=== PATIENT | male | born 1970 | race Caucasian/White ===

== ENCOUNTER 2018-01-24 14:11 | Emergency (ER) | payer SELFPAY ==
[2018-01-24 14:49] LABS: Absolute Lymphocytes (CBC) 2.1 K/uL (0.7-4.9); Absolute Neutrophil 3.2 K/uL (1.8-8.0); Eosinophils % 1.3 % (0-4.4); Hematocrit 44.6 % (39.6-49.0); Lymphocytes % 32.2 % (15.3-44.8); MCH 35.7 pg (27.0-35.0); MCV 103.9 fL (80-100); MPV 8.4 fL (7.6-11.3); RBC Red Blood Cell Count 4.29 M/uL (4.33-5.43)
[2018-01-24 14:54] LABS: Protime INR 0.92
[2018-01-24 15:13] LABS: ALT/SGPT 222 U/L (12-78); Albumin 4.1 g/dL (3.4-5.0); Alkaline Phosphatase 130 U/L (45-117); BUN Blood Urea Nitrogen 6 mg/dL (7-18); Bicarbonate 28 mmol/L (21-32); Bilirubin Direct 0.2 mg/dL (0-0.2); Bilirubin Total 0.3 mg/dL (0.2-1.0); Glucose Level 109 mg/dL (74-106); Protein, Total 8.4 g/dL (6.4-8.2); Sodium Level 142 mmol/L (136-145); Troponin (Emerg Dept Use Only) < 0.02 ng/mL (0.0-0.045)
--- NOTE | 2018-01-24 15:15 | RAD REPORT ---
EXAM DESCRIPTION: CT - Head Brain Wo Cont - 01/24/2018 3:08 pm CLINICAL HISTORY: CONFUSED Drowsiness COMPARISON: No comparisons TECHNIQUE: All CT scans are performed using dose optimization technique as appropriate and may inclu de automated exposure control or mA/KV adjustment according to patient size. FINDINGS: No intracranial hemorrhage, hydrocephalus or extra-axial fluid collection.No areas of brai n edema or evidence of midline shift. The paranasal sinuses and mastoids are clear. The calvarium is intact. IMPRESSION: No acute intracranial abnormality.
[2018-01-24 15:17] LABS: AST/SGOT 388 U/L (15-37); Potassium 2.8 mmol/L (3.5-5.1)
[2018-01-24] MEDS ORDERED: POTASSIUM CL SA 10 MEQ TAB PO ONE ×2 (15:42→17:07)
--- NOTE | 2018-01-24 16:51 | ER ---
Nurse's Notes [facility] Name: Steve Villaseñor Age: 47 yrs Sex: Male : 1970 Arrival Date: 01/24/2018 Time: 14:16 Bed 18 Private MD: Diagnosis: Alcohol abuse with intoxication Presentation: 01/24 14:17 Presenting complaint: EMS states: called out for intoxicated person at restaurant em parking lot, pt c/o chest pain described as "it's like a cramp, coming at me" pointed at center of chest, smells of ETOH. Transition of care: patient was not received from another setting of care. Onset of symptoms was January 24, 2018. Risk Assessment: Do you want to hurt yourself or someone else? Patient reports no desire to harm self or others. Initial Sepsis Screen: Does the patient meet any 2 criteria? No. Patient's initial sepsis screen is negative. Does the patient have a suspected source of infection? No. Patient's initial sepsis screen is negative. Care prior to arrival: None. 14:17 Method Of Arrival: EMS: [facility] em 14:17 Acuity: OSCAR 3 ss Triage Assessment: 14:21 General: Appears in no apparent distress. comfortable, Behavior is calm, cooperative, em Smells of alcohol. Pain: Complains of pain in chest. Historical: - Allergies: 14:21 No Known Allergies; em - PMHx: 14:21 None; em - PSHx: 14:21 None; em - Immunization history:: Adult Immunizations up to date. - Social history:: Smoking status: Patient uses tobacco products, smokes one pack cigarettes per day. - Ebola Screening: : Patient negative for fever greater than or equal to 101.5 degrees Fahrenheit, and additional compatible Ebola Virus Disease symptoms Patient denies exposure to infectious person Patient denies travel to an Ebola-affected area in the 21 days before illness onset No symptoms or risks identified at this time. Screenin:27 Abuse screen: Denies threats or abuse. Nutritional screening: No deficits noted. em Tuberculosis screening: No symptoms or risk factors identified. Fall Risk Gait- Impaired (20 pts.). Mental Status- Overestimates/Forgets Limitations (15 pts.). Total Price Fall Scale indicates Low Risk Score (25-44 pts). Side Rails Up X 2 Placed close to Nursing Station. Assessment: 14:11 General: Appears in no apparent distress. comfortable, Behavior is calm, cooperative, em Smells of alcohol. Pain: Complains of pain in chest Pain currently is 10 out of 10 on a pain scale. Neuro: Level of Consciousness is awake, alert, obeys commands, Oriented to person, place, time, situation. Cardiovascular: Reports chest pain, Capillary refill < 3 seconds Patient's skin is warm and dry. Rhythm is sinus rhythm. Respiratory: Airway is patent Respiratory effort is even, unlabored, Respiratory pattern is regular, symmetrical, Breath sounds are clear bilaterally. GI: Abdomen is flat, Patient currently denies nausea, vomiting. : No signs and/or symptoms were reported regarding the genitourinary system. EENT: No signs and/or symptoms were reported regarding the EENT system. Derm: Skin is intact, Skin is pink, warm \\T\\ dry. Musculoskeletal: Range of motion: intact in all extremities. 15:06 Reassessment: Patient appears in no apparent distress at this time. Patient and/or em family updated on plan of care and expected duration. Pain level reassessed. Patient is alert, oriented x 3, equal unlabored respirations, skin warm/dry/pink. 15:44 Reassessment: Patient appears in no apparent distress at this time. Patient and/or em family updated on plan of care and expected duration. Pain level reassessed. Patient is alert, oriented x 3, equal unlabored respirations, skin warm/dry/pink. pt request to go smoke, staff informed pt that this campus is a smoke free campus and cannot leave without an IV in place, pt verbalizes understanding Patient states feeling better. 16:45 Reassessment: Patient appears in no apparent distress at this time. Patient and/or em family updated on plan of care and expected duration. Pain level reassessed. Patient is alert, oriented x 3, equal unlabored respirations, skin warm/dry/pink. pt friend will take pt home after discharge, special instructions to not allow pt to drive for at least one day, both verbalize understanding Patient denies pain at this time. Patient states feeling better. Vital Signs: 14:11 BP 122 / 82; Pulse 95; Resp 18; Temp 98.6; Pulse Ox 98.6% on R/A; Weight 77.11 kg; em Height 5 ft. 8 in. (172.72 cm); Pain 10/10; 15:00 BP 138 / 93; Pulse 75; Resp 16; Pulse Ox 100% on R/A; em 16:00 BP 130 / 87; Pulse 86; Resp 18; Pulse Ox 99% on R/A; em 16:45 BP 128 / 91; Pulse 72; Resp 16; Pulse Ox 100% on R/A; Pain 0/10; em 14:11 Body Mass Index 25.85 (77.11 kg, 172.72 cm) em ED Course: 14:11 Arm band placed on. em 14:16 Patient arrived in ED. mr 14:16 John Cece, KE[facility]INDE [facility]. kb 14:17 Arsen Spears MD is Attending Physician. kb 14:17 Kwan Wagner LVN is Primary Nurse. em 14:27 Patient has correct armband on for positive identification. Bed in low position. Call em light in reach. 14:40 Triage completed. ss 15:02 Initial lab(s) drawn, by me, sent to lab. EKG done, by ED staff, reviewed by Arsen Spears MD. Inserted saline lock: 20 gauge in right antecubital area, using aseptic technique. Blood collected. 15:08 CT Head Brain wo Cont In Process Unspecified. EDMS 15:17 Notified Nurse Practitioner and/or Physician Wagon Driller of a critical lab result(s), sg Potassium 2..8, AST 388. 17:06 No provider procedures requiring assistance completed. IV discontinued, intact, em bleeding controlled, No redness/swelling at site. Pressure dressing applied. Administered Medications: Discontinued: Banana Bag - (NS 0.9% 1000 ml, foLIC Acid 1 mg, Thiamine 100 mg, Multivitamin 1 amp) IV at calculated rate once 15:37 Drug: Potassium Chloride 40 mEq Route: PO; em 15:58 Follow up: Response: No adverse reaction em 15:58 Drug: Banana Bag - (NS 0.9% 1000 ml, foLIC Acid 1 mg, Thiamine 100 mg, Multivitamin 1 em amp) Route: IV; Rate: calculated rate; Site: right antecubital; 17:00 Drug: Potassium Chloride 40 mEq Route: PO; em 17:05 Follow up: Response: Medication administered at discharge. em Outcome: 16:50 Discharge ordered by . kb 17:06 Discharged to home ambulatory, with friend. em 17:06 Condition: improved 17:06 Discharge instructions given to patient, friend, Instructed on discharge instructions, follow up and referral plans. Demonstrated understanding of instructions, follow-up care. 17:09 Patient left the ED. em Signatures: Dispatcher [employer] Cece Wiley, WEBSPHERE PORTAL ARCHITECT-C WEBSPHERE PORTAL ARCHITECT-Kulwant Cool, RN RN Cristina Sun BernardKwan, AUTO OVERHAULER AUTO OVERHAULER em Maria Isabel Guerrero RN RN ss
--- NOTE | 2018-01-24 16:52 | EDPHYS ---
Physician Documentation [facility] Name: Steve Villaseñor Age: 47 yrs Sex: Male : 1970 Arrival Date: 01/24/2018 Time: 14:16 Bed 18 Private MD: ED Physician Arsen Spears HPI: 01/24 14:20 This 47 yrs old Male presents to ER via Unassigned with complaints of ETOH kb Abuse. 14:23 The patient presents with disorientation, to time. Onset: The symptoms/episode kb began/occurred today. Possible causes: alcohol, has a history of chronic alcohol abuse. Associated signs and symptoms: Pertinent positives: chest pain. Current symptoms: In the emergency department the patient's symptoms are unchanged from the initial presentation. Patient's baseline: Neuro: alert and fully oriented, Motor: no deficits, Ambulation: walks without assistance, Speech: normal. The patient has not experienced similar symptoms in the past. The patient has not recently seen a physician. 14:28 [facility] called EMS to transport to ER kb for intoxication. Historical: - Allergies: 14:21 No Known Allergies; em - PMHx: 14:21 None; em - PSHx: 14:21 None; em - Immunization history:: Adult Immunizations up to date. - Social history:: Smoking status: Patient uses tobacco products, smokes one pack cigarettes per day. - Ebola Screening: : Patient negative for fever greater than or equal to 101.5 degrees Fahrenheit, and additional compatible Ebola Virus Disease symptoms Patient denies exposure to infectious person Patient denies travel to an Ebola-affected area in the 21 days before illness onset No symptoms or risks identified at this time. ROS: 14:18 Constitutional: Negative for fever, chills, and weight loss, ENT: Negative for injury, kb pain, and discharge, Neck: Negative for injury, pain, and swelling, Respiratory: Negative for shortness of breath, cough, wheezing, and pleuritic chest pain, Abdomen/GI: Negative for abdominal pain, nausea, vomiting, diarrhea, and constipation, Back: Negative for injury and pain, : Negative for injury, bleeding, discharge, and swelling, MS/Extremity: Negative for injury and deformity, Skin: Negative for injury, rash, and discoloration, Neuro: Negative for headache, weakness, numbness, tingling, and seizure. 14:18 Cardiovascular: Positive for chest pain, Negative for edema, orthopnea, palpitations, paroxysmal nocturnal dyspnea. Exam: 14:17 Head/Face: Normocephalic, atraumatic. ENT: Nares patent. No nasal discharge, no kb septal abnormalities noted. Tympanic membranes are normal and external auditory canals are clear. Oropharynx with no redness, swelling, or masses, exudates, or evidence of obstruction, uvula midline. Mucous membranes moist. Neck: Trachea midline, no thyromegaly or masses palpated, and no cervical lymphadenopathy. Supple, full range of motion without nuchal rigidity, or vertebral point tenderness. No Meningismus. Chest/axilla: Normal chest wall appearance and motion. Nontender with no deformity. No lesions are appreciated. Cardiovascular: Regular rate and rhythm with a normal S1 and S2. No gallops, murmurs, or rubs. Normal PMI, no JVD. No pulse deficits. Respiratory: Lungs have equal breath sounds bilaterally, clear to auscultation and percussion. No rales, rhonchi or wheezes noted. No increased work of breathing, no retractions or nasal flaring. Abdomen/GI: Soft, non-tender, with normal bowel sounds. No distension or tympany. No guarding or rebound. No evidence of tenderness throughout. Skin: Warm, dry with normal turgor. Normal color with no rashes, no lesions, and no evidence of cellulitis. MS/ Extremity: Pulses equal, no cyanosis. Neurovascular intact. Full, normal range of motion. Neuro: Awake and alert, GCS 15, oriented to person, place, time, and situation. Cranial nerves II-XII grossly intact. Motor strength 5/5 in all extremities. Sensory grossly intact. Cerebellar exam normal. Normal gait. 14:17 Constitutional: The patient appears alert, awake, smells of alcohol, ETOH. Vital Signs: 14:11 BP 122 / 82; Pulse 95; Resp 18; Temp 98.6; Pulse Ox 98.6% on R/A; Weight 77.11 kg; em Height 5 ft. 8 in. (172.72 cm); Pain 10/10; 15:00 BP 138 / 93; Pulse 75; Resp 16; Pulse Ox 100% on R/A; em 16:00 BP 130 / 87; Pulse 86; Resp 18; Pulse Ox 99% on R/A; em 16:45 BP 128 / 91; Pulse 72; Resp 16; Pulse Ox 100% on R/A; Pain 0/10; em 14:11 Body Mass Index 25.85 (77.11 kg, 172.72 cm) em MDM: 14:17 Patient medically screened. kb 14:17 Data reviewed: vital signs, nurses notes. Data interpreted: Pulse oximetry: on room air kb is 98 %. Interpretation: normal. 16:48 Counseling: I had a detailed discussion with the patient and/or guardian regarding: the kb historical points, exam findings, and any diagnostic results supporting the discharge/admit diagnosis, lab results, the need for outpatient follow up, a family practitioner, to return to the emergency department if symptoms worsen or persist or if there are any questions or concerns that arise at home. 16:50 ED course: Pt discharged to sober, responsible adult.. kb 01/24 14:17 Order name: Acetaminophen kb 01/24 14:17 Order name: Basic Metabolic Panel; Complete Time: 15:18 kb 01/24 14:17 Order name: CBC with Diff; Complete Time: 14:58 kb 01/24 14:17 Order name: ETOH Level; Complete Time: 15:17 kb 01/24 14:17 Order name: Hepatic Function; Complete Time: 15:18 kb 01/24 14:17 Order name: PT-INR; Complete Time: 15:17 kb 01/24 14:17 Order name: Ptt, Activated; Complete Time: 15:17 kb 01/24 14:17 Order name: Salicylate; Complete Time: 15:17 kb 01/24 14:17 Order name: Troponin (emerg Dept Use Only); Complete Time: 15:18 kb 01/24 14:17 Order name: Acetaminophen Level; Complete Time: 15:18 EDMS 01/24 14:48 Order name: CT Head Brain wo Cont; Complete Time: 15:17 kb 01/24 14:17 Order name: EKG; Complete Time: 14:18 kb 01/24 14:17 Order name: EKG - Nurse/Tech; Complete Time: 15:45 kb 01/24 14:17 Order name: IV Saline Lock; Complete Time: 14:40 kb 01/24 14:17 Order name: Labs collected and sent; Complete Time: 14:39 kb 01/24 14:17 Order name: Urine Dipstick-Ancillary (obtain specimen); Complete Time: 14:40 kb Administered Medications: Discontinued: Banana Bag - (NS 0.9% 1000 ml, foLIC Acid 1 mg, Thiamine 100 mg, Multivitamin 1 amp) IV at calculated rate once 15:37 Drug: Potassium Chloride 40 mEq Route: PO; em 15:58 Follow up: Response: No adverse reaction em 15:58 Drug: Banana Bag - (NS 0.9% 1000 ml, foLIC Acid 1 mg, Thiamine 100 mg, Multivitamin 1 em amp) Route: IV; Rate: calculated rate; Site: right antecubital; 17:00 Drug: Potassium Chloride 40 mEq Route: PO; em 17:05 Follow up: Response: Medication administered at discharge. em Disposition: 01/25 11:13 Co-signature as Attending Physician, Arsen Spears MD. gs Disposition: 01/24/18 16:50 Discharged to Home. Impression: Alcohol abuse with intoxication. - Condition is Stable. - Discharge Instructions: Alcohol Intoxication, [id number]. - Medication Reconciliation Form, Thank You Letter, Antibiotic Education, Prescription Opioid Use form. - Follow up: Emergency Department; When: As needed; Reason: Worsening of condition. Follow up: Private Physician; When: 2 - 3 days; Reason: Recheck today's complaints, Continuance of care, Re-evaluation by your physician. Signatures: Dispatcher [employer] [facility] Cece Lopez, RADHA-C HELICOPTER TECHNICIAN-Ckb Kwan Wagner, LIDAR SCIENTIST LIDAR SCIENTIST Arsen Doe MD MD Corrections: (The following items were deleted from the chart) 01/24 14:27 14:20 Context: Method: the patient has a confirmed or suspected ingestion, selena walters 17:01 14:18 URINE DRUG SCREEN+CHEM UR.LAB.BRZ ordered. [facility] 17:09 16:50 01/24/2018 16:50 Discharged to Home. Impression: Alcohol abuse with intoxication. em Condition is Stable. Forms are Medication Reconciliation Form, Thank You Letter, Antibiotic Education, Prescription Opioid Use. Follow up: Emergency Department; When: As needed; Reason: Worsening of condition. Follow up: Private Physician; When: 2 - 3 days; Reason: Recheck today's complaints, Continuance of care, Re-evaluation by your physician. selena
--- NOTE | 2018-01-25 07:05 | EKG ---
Test Date: 2018-01-24 Test Time: 14:43:26 [place] Worker: KIMBERLY MEASUREMENT RESULTS: Intervals: Rate: 78 MA: 140 QRSD: 84 QT: 382 QTc: 435 [place]: P: 12 MA: 140 QRS: 5 T: 34 INTERPRETIVE STATEMENTS: Normal sinus rhythm Normal ECG No previous ECG available for comparison Electronically Signed On 01-25-18 07:04:26 RESTAURANT LEAD by Deni Rosario
[2018-01-25] MEDS ORDERED: FOLIC ACID 1 MG, MULTIVITAMINS INJ 10 ML, THIAMINE HCL 100 MG in NA CHLORIDE 0.9% 1,000 ML IV SCH (09:00)
== END 2018-01-24 17:09 | disposition home or self-care (01) ==
LOC: ER 14:11
DX: F10.129 Alcohol abuse with intoxication, unspecified (principal); R07.9 Chest pain, unspecified; F17.210 Nicotine dependence, cigarettes, uncomplicated
CPT/HCPCS: 36415; 70450; 80048; 80076; 80320; 80329; 84484; 85025; 85610; 85730; 93005; 96374; 99284; J3411; J7030

== ENCOUNTER 2020-04-10 09:01 | Inpatient (IN) | payer SELFPAY ==
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
--- NOTE | 2020-04-10 09:43 | RAD REPORT ---
EXAM DESCRIPTION: CT - Head Brain Wo Cont - 04/10/2020 9:35 am CLINICAL HISTORY: SEIZURE Headache, drowsiness, seizure COMPARISON: Head Brain Wo Cont dated 01/24/2018 TECHNIQUE: All CT scans are performed using dose optimization technique as appropriate and may inclu de automated exposure control or mA/KV adjustment according to patient size. FINDINGS: No intracranial hemorrhage, hydrocephalus or extra-axial fluid collection.No areas of brai n edema or evidence of midline shift. The paranasal sinuses and mastoids are clear. The calvarium is intact. IMPRESSION: No acute intracranial abnormality.
[2020-04-10] MEDS ORDERED: NA CHLORIDE 0.9% 1,000 ML with FOLIC ACID 1 MG, THIAMINE HCL 100 MG, MULTIVITAMINS INJ ... IV SCH ×4 (09:45)
[2020-04-10] MEDS ORDERED: LORazepam 2 MG/ML VIAL ONE ×4 (09:48→22:31)
[2020-04-10 10:04] LABS: Absolute Lymphocytes (CBC) 0.8 K/uL (0.7-4.9); Basophils % 0.3 % (0-1.3); Hematocrit 34.9 % (39.6-49.0); Lymphocytes % 13.2 % (15.3-44.8); MPV 9.8 fL (7.6-11.3); RBC Red Blood Cell Count 3.57 M/uL (4.33-5.43)
[2020-04-10 10:08] LABS: Protime INR 1.01
[2020-04-10 10:36] LABS: Blood Morphology Comment NOT SEEN (NOT SEEN); Platelet Estimate DECR; White Blood Cell Scan OK (OK)
[2020-04-10 10:40] LABS: ALT/SGPT 19 U/L (12-78); AST/SGOT 34 U/L (15-37); Albumin 2.7 g/dL (3.4-5.0); Alkaline Phosphatase 96 U/L (45-117); BUN Blood Urea Nitrogen 4 mg/dL (7-18); Bicarbonate 26 mmol/L (21-32); Bilirubin Direct 0.2 mg/dL (0-0.2); Bilirubin Total 0.5 mg/dL (0.2-1.0); Glucose Level 158 mg/dL (74-106); Protein, Total 6.2 g/dL (6.4-8.2); Sodium Level 133 mmol/L (136-145)
[2020-04-10 10:45] LABS: Potassium 2.5 mmol/L (3.5-5.1)
--- NOTE | 2020-04-10 11:44 | EDPHYS ---
Physician Documentation [facility] Name: Steve Villaseñor Age: 50 yrs Sex: Male : 1970 Arrival Date: 04/10/2020 Time: 09:13 Bed 20 Private MD: ED Physician Sonia Rodriguez HPI: 04/10 09:30 This 50 yrs old Male presents to ER via EMS with complaints of Seizure. cp 09:30 The patient presents after having a single isolated seizure, that lasted an unknown cp period of time. 09:30 Character of seizure(s): Loss of consciousness: the patient experienced loss of cp consciousness, Incontinence: none. 09:30 Context: the seizure(s) was witnessed, by family, occurred at home, Contributing cp factors: quit drinking alcohol 4 days ago. Seizure Hx: the patient has no previous seizure history. Associated injury: The patient did not suffer any apparent associated injury. EMS care: none. Current symptoms: Currently, the patient is not experiencing any symptoms, the patient feels back to baseline. Historical: - Allergies: 09:16 No Known Allergies; jd3 - Home Meds: 09:16 None [Active]; jd3 - PMHx: 09:16 Alcoholism; jd3 - PSHx: 09:16 None; jd3 - Immunization history:: Adult Immunizations unknown. - Social history:: Smoking status: Patient reports the use of cigarette tobacco products, smokes one-half pack cigarettes per day. ROS: 09:35 Constitutional: Negative for body aches, chills, fever, poor PO intake. cp 09:35 Eyes: Negative for injury, pain, redness, and discharge. cp 09:35 Cardiovascular: Negative for chest pain, palpitations. 09:35 Respiratory: Negative for cough, shortness of breath, wheezing. 09:35 Abdomen/GI: Negative for abdominal pain, nausea, vomiting, and diarrhea, black/tarry stool, rectal bleeding. 09:35 Skin: Negative for cellulitis, rash. 09:35 Neuro: Positive for history of seizure. 09:35 Psych: Positive for alcohol dependence, Negative for depression, auditory hallucinations, visual hallucinations, suicide gesture, suicidal ideation. 09:35 All other systems are negative. Exam: 09:35 Head/Face: Normocephalic, atraumatic. cp 09:35 Constitutional: The patient appears in no acute distress, alert, awake, non-diaphoretic, non-toxic, well developed, well nourished. 09:35 Eyes: Periorbital structures: appear normal, Pupils: equal, round, and reactive to light and accomodation, Extraocular movements: intact throughout, Conjunctiva: normal, no exudate, no injection, Sclera: no appreciated abnormality, Lids and lashes: appear normal, bilaterally. 09:35 ENT: External ear(s): are unremarkable, Nose: is normal, Mouth: Lips: moist, Oral mucosa: pink and intact, moist, Posterior pharynx: Airway: no evidence of obstruction, patent. 09:35 Neck: C-spine: vertebral tenderness, is not appreciated, crepitus, is not appreciated, ROM/movement: is normal, is supple, without pain, no range of motions limitations, no meningismus, no nuchal rigidity. 09:35 Chest/axilla: Inspection: normal, Palpation: is normal, no crepitus, no tenderness. 09:35 Cardiovascular: Rate: tachycardic, Rhythm: regular, Edema: is not appreciated, JVD: is not appreciated. 09:35 Respiratory: the patient does not display signs of respiratory distress, Respirations: normal, no use of accessory muscles, no retractions, labored breathing, is not present, intercostal retractions, are absent, shallow respirations, are not present, Breath sounds: are clear throughout, no decreased breath sounds, no stridor, no wheezing. 09:35 Abdomen/GI: Inspection: abdomen appears normal, Bowel sounds: active, all quadrants, Palpation: abdomen is soft and non-tender, in all quadrants. 09:35 Back: pain, is absent, ROM is normal. 09:35 Skin: cellulitis, is not appreciated, no rash present. 09:35 Neuro: Orientation: to person, place \\T\\ time. Mentation: is normal, Motor: moves all fours, strength is normal, Abnormal movements: resting tremor, is located in the right hand and left hand. 10:15 ECG was reviewed by the Attending Physician. cp Vital Signs: 09:17 BP 145 / 105; Pulse 108; Resp 17 S; Temp 99.7(O); Pulse Ox 100% on R/A; Weight 77.11 kg jd3 (R); Height 5 ft. 8 in. (172.72 cm) (R); Pain 0/10; 10:37 BP 128 / 89; Pulse 90; Resp 17 S; Pulse Ox 97% on R/A; jd3 12:53 BP 123 / 85; Pulse 88; Resp 17 S; Pulse Ox 100% on R/A; jd3 13:52 BP 119 / 83; Pulse 80; Resp 17 S; Pulse Ox 98% on R/A; jd3 09:17 Body Mass Index 25.85 (77.11 kg, 172.72 cm) jd3 Jagruti Coma Score: 09:16 Eye Response: spontaneous(4). Verbal Response: oriented(5). Motor Response: obeys jd3 commands(6). Total: 15. MDM: 09:22 Patient medically screened. cp 11:00 Data reviewed: vital signs, nurses notes, lab test result(s), EKG, radiologic studies, cp CT scan, I have discussed the patient's presentation/case with the attending Emergency Department Physician; and as a result, I will admit patient. 11:00 Test interpretation: by ED physician or midlevel provider: ECG. Counseling: I had a cp detailed discussion with the patient and/or guardian regarding: the historical points, exam findings, and any diagnostic results supporting the discharge/admit diagnosis, lab results, radiology results, the need for further work-up and treatment in the hospital. Response to treatment: the patient's symptoms have mildly improved after treatment. 11:05 Physician consultation: Jone Beverly MD was called at 10:50, was contacted at 11:05, regarding admission, to the ICU, patient's condition, and will see patient in ED. 04/10 09:22 Order name: Acetaminophen cp 04/10 09:22 Order name: Basic Metabolic Panel cp 04/10 09:22 Order name: CBC with Diff cp 04/10 09:22 Order name: ETOH Level cp 04/10 09:22 Order name: Hepatic Function cp 04/10 09:22 Order name: PT-INR cp 04/10 09:22 Order name: Ptt, Activated cp 04/10 09:22 Order name: Salicylate cp 04/10 09:22 Order name: Urine Drug Screen cp 04/10 10:12 Order name: Protime (+INR); Complete Time: 10:58 EDMS 04/10 10:12 Order name: PTT, Activated Partial Thromb; Complete Time: 10:58 EDMS 04/10 10:15 Order name: CBC with Automated Diff; Complete Time: 10:58 EDMS 04/10 10:15 Order name: Alcohol Serum/Plasma; Complete Time: 10:58 EDMS 04/10 10:37 Order name: CBC Smear Scan; Complete Time: 10:58 EDMS 04/10 10:40 Order name: Salicylates Level; Complete Time: 10:58 EDMS 04/10 10:45 Order name: Basic Metabolic Panel; Complete Time: 10:58 EDMS 04/10 10:45 Order name: Liver (Hepatic) Function; Complete Time: 10:58 EDMS 04/10 10:45 Order name: Acetaminophen Level; Complete Time: 10:58 EDMS 04/10 12:09 Order name: COVID-19 : Document "Date of Symptom Onset" if Symptomatic. cp 04/10 12:48 Order name: CORONAVIRUS EDMS 04/10 12:51 Order name: Urine Dipstick--Ancillary (enter results) bd 04/10 13:56 Order name: SARS-COV-2 RT PCR EDMS 04/10 13:58 Order name: Urine Dipstick-Ancillary EDMS 04/11 06:59 Order name: CBC with Automated Diff EDMS 04/11 07:58 Order name: Comprehensive Metabolic Panel EDMS 04/11 07:59 Order name: Magnesium EDMS 04/11 14:25 Order name: Basic Metabolic Panel EDMS 04/11 14:25 Order name: Magnesium EDMS 04/11 14:57 Order name: Vitamin D, 25 (OH), TOTAL EDMS 04/11 14:59 Order name: PTH Intact EDMS 04/10 09:22 Order name: EKG; Complete Time: 09:23 cp 04/10 09:22 Order name: EKG - Nurse/Tech; Complete Time: 10:20 cp 04/10 09:22 Order name: IV Saline Lock; Complete Time: 09:28 cp 04/10 09:22 Order name: Labs collected and sent; Complete Time: 09:28 cp 04/10 09:22 Order name: Urine Dipstick-Ancillary (obtain specimen); Complete Time: 12:51 cp 04/10 09:22 Order name: CT Head Brain wo Cont cp 04/10 09:44 Order name: CT; Complete Time: 10:01 EDMS 04/10 10:01 Interpretation: Report reviewed. cp 04/11 20:35 Order name: Urinalysis EDCA 04/11 20:49 Order name: Basic Metabolic Panel EDCA 04/11 20:49 Order name: Magnesium EDMS 04/12 05:37 Order name: CBC with Automated Diff EDMS 04/12 05:51 Order name: Comprehensive Metabolic Panel EDCA 04/12 05:51 Order name: Phosphorus EDMS 04/12 05:51 Order name: Magnesium EDMS EC:15 Rate is 105 beats/min. Rhythm is regular. HI interval is normal. QRS interval is cp normal. QT interval is normal. T waves are Inverted in leads III, aVR. Interpreted by me. Reviewed by me. Administered Medications: 09:42 Drug: Ativan 1 mg Route: IVP; Site: right forearm; jd3 10:40 Follow up: Response: No adverse reaction jd3 10:19 Drug: Banana Bag - (NS 0.9% 1000 ml, foLIC Acid 1 mg, Thiamine 100 mg, Multivitamin 1 jd3 amp) Route: IV; Rate: 500 ml/hr; Site: right forearm; 11:20 Follow up: Response: No adverse reaction; IV Status: Completed infusion; IV Intake: jd3 1000ml 12:28 Drug: NS 0.9% 1000 ml Route: IV; Rate: 125 ml/hr; Site: right forearm; jd3 19:02 Follow up: Response: No adverse reaction; IV Status: Infusion continued upon admission jd3 12:29 Drug: Ativan 1 mg Route: IVP; Site: right forearm; jd3 13:20 Follow up: Response: No adverse reaction jd3 Disposition: 04/10/20 11:17 Hospitalization ordered by Jone Beverly for Inpatient Admission. Preliminary diagnosis are Alcohol dependence with withdrawal, Seizure. - Bed requested for Telemetry/MedSurg (Inpatient). - Status is Inpatient Admission. ph - Condition is Fair. - Problem is new. - Symptoms have improved. Addendum: 04/16/2020 19:18 Co-signature as Attending Physician, Sonia Rodriguez MD. m a2 Signatures: Dispatcher [facility] Lily Perry Stephanie, RN RN Jonna Wilson RN RN ph Farhan Quintana PA PA cp Stuart Espino, MASSIEL RN jd3 Sonia Rodriguez MD MD ma2 Corrections: (The following items were deleted from the chart) 04/10 11:22 11:17 Hospitalization Ordered by Jone Beverly MD for Inpatient Admission. Preliminary cp diagnosis is Alcohol dependence with withdrawal; Seizure. Bed requested for Telemetry/MedSurg (Inpatient). Status is Inpatient Admission. Condition is Fair. Problem is new. Symptoms have improved. cp 12:23 11:22 04/10/2020 11:17 Hospitalization Ordered by Jone Beverly MD for Inpatient bd Admission. Preliminary diagnosis is Alcohol dependence with withdrawal; Seizure. Bed requested for Intensive Care Unit. Status is Inpatient Admission. Condition is Fair. Problem is new. Symptoms have improved. cp 04/12 11:14 04/10 12:23 04/10/2020 11:17 Hospitalization Ordered by Jone Beverly MD for Inpatient sv Admission. Preliminary diagnosis is Alcohol dependence with withdrawal; Seizure. Bed requested for [facility] ER HOLD. Status is Inpatient Admission. Condition is Fair. Problem is new. Symptoms have improved. bd 04/12 11:42 11:14 04/10/2020 11:17 Hospitalization Ordered by Jone Beverly MD for Inpatient ph Admission. Preliminary diagnosis is Alcohol dependence with withdrawal; Seizure. Bed requested for Telemetry/MedSurg (Inpatient). Status is Inpatient Admission. Condition is Fair. Problem is new. Symptoms have improved. sv
--- NOTE | 2020-04-10 11:44 | ER ---
Nurse's Notes [facility] Name: Steve Villaseñor Age: 50 yrs Sex: Male : 1970 Arrival Date: 04/10/2020 Time: 09:13 Bed 20 Private MD: Diagnosis: Alcohol dependence with withdrawal;Seizure Presentation: 04/10 09:13 Chief complaint: EMS states: "pt called EMS for trimmers, he reports being 2 weeks jd3 sober with a history of alcohol abuse. during transport the pt had a seizure that only lasted accouple of seconds. no medications given.". Coronavirus screen: At this time, the client does not indicate any symptoms associated with coronavirus-19. Ebola Screen: Patient negative for fever greater than or equal to 101.5 degrees Fahrenheit, and additional compatible Ebola Virus Disease symptoms. Initial Sepsis Screen: Does the patient meet any 2 criteria? No. Patient's initial sepsis screen is negative. Does the patient have a suspected source of infection? No. Patient's initial sepsis screen is negative. Risk Assessment: Do you want to hurt yourself or someone else? Patient reports no desire to harm self or others. Onset of symptoms was April 10, 2020. 09:13 Method Of Arrival: EMS: [facility] jd3 09:13 Acuity: OSCAR 3 jd3 Triage Assessment: 09:16 Neuro: Level of Consciousness is awake, alert, obeys commands, Oriented to person, jd3 place, time, situation, Speech is normal, pt with trimmers. Historical: - Allergies: 09:16 No Known Allergies; jd3 - Home Meds: 09:16 None [Active]; jd3 - PMHx: 09:16 Alcoholism; jd3 - PSHx: 09:16 None; jd3 - Immunization history:: Adult Immunizations unknown. - Social history:: Smoking status: Patient reports the use of cigarette tobacco products, smokes one-half pack cigarettes per day. Screenin:18 Abuse screen: Denies threats or abuse. Nutritional screening: No deficits noted. jd3 Tuberculosis screening: No symptoms or risk factors identified. Fall Risk Ambulatory Aid- None/Bed Rest/Nurse Assist (0 pts). Gait- Normal/Bed Rest/Wheelchair (0 pts) Mental Status- Oriented to own ability (0 pts). Total Price Fall Scale indicates No Risk (0-24 pts). Assessment: 09:10 General: Appears in no apparent distress. uncomfortable, Behavior is calm, cooperative, jd3 appropriate for age, anxious. Pain: Complains of pain in abdomen Quality of pain is described as crampy, Is intermittent. Neuro: Level of Consciousness is awake, alert, obeys commands, Oriented to person, place, time, situation, Moves all extremities. Full function Speech is normal, Facial symmetry appears normal, Pupils are PERRLA, Intact. Cardiovascular: Denies chest pain, Capillary refill < 3 seconds Patient's skin is warm and dry. Respiratory: Airway is patent Respiratory effort is even, unlabored, Respiratory pattern is regular, symmetrical, Denies cough, shortness of breath. GI: Abdomen is round non-distended, Abd is soft and non tender X 4 quads. Reports upper abdominal pain, Patient currently denies diarrhea, nausea, vomiting. : No signs and/or symptoms were reported regarding the genitourinary system. EENT: No signs and/or symptoms were reported regarding the EENT system. Derm: Skin is intact, Skin is dry, Skin is normal, Skin temperature is warm. Musculoskeletal: Circulation, motion, and sensation intact. Range of motion: intact in all extremities. 10:36 Reassessment: Patient appears in no apparent distress at this time. Patient and/or jd3 family updated on plan of care and expected duration. Pain level reassessed. Patient is alert, oriented x 3, equal unlabored respirations, skin warm/dry/pink. pt appears less anxious Patient states feeling better. 11:45 Reassessment: Patient appears in no apparent distress at this time. No changes from jd3 previously documented assessment. Patient and/or family updated on plan of care and expected duration. Pain level reassessed. Patient is alert, oriented x 3, equal unlabored respirations, skin warm/dry/pink. 12:45 Reassessment: Patient appears in no apparent distress at this time. No changes from jd3 previously documented assessment. Patient and/or family updated on plan of care and expected duration. Pain level reassessed. Patient is alert, oriented x 3, equal unlabored respirations, skin warm/dry/pink. trimmers starting again, medicated as ordered. 13:51 Reassessment: Patient appears in no apparent distress at this time. Patient and/or jd3 family updated on plan of care and expected duration. Pain level reassessed. Patient is alert, oriented x 3, equal unlabored respirations, skin warm/dry/pink. charting continued in [facility]. Vital Signs: 09:17 BP 145 / 105; Pulse 108; Resp 17 S; Temp 99.7(O); Pulse Ox 100% on R/A; Weight 77.11 kg jd3 (R); Height 5 ft. 8 in. (172.72 cm) (R); Pain 0/10; 10:37 BP 128 / 89; Pulse 90; Resp 17 S; Pulse Ox 97% on R/A; jd3 12:53 BP 123 / 85; Pulse 88; Resp 17 S; Pulse Ox 100% on R/A; jd3 13:52 BP 119 / 83; Pulse 80; Resp 17 S; Pulse Ox 98% on R/A; jd3 09:17 Body Mass Index 25.85 (77.11 kg, 172.72 cm) jd3 Jagruti Coma Score: 09:16 Eye Response: spontaneous(4). Verbal Response: oriented(5). Motor Response: obeys jd3 commands(6). Total: 15. ED Course: 09:13 Patient arrived in ED. jd3 09:13 Stuart Espino RN is Primary Nurse. jd3 09:16 Triage completed. jd3 09:18 Arm band placed on. jd3 09:18 Placed in gown. Bed in low position. Call light in reach. Side rails up X2. Seizure jd3 precautions initiated. cobol programmer on. Pulse ox on. NIBP on. 09:18 Inserted saline lock: 20 gauge in right forearm, using aseptic technique. Blood jd3 collected. 09:20 Farhan Quintana PA is PHCP. cp 09:20 Sonia Rodriguez MD is Attending Physician. cp 11:16 Jone Beverly MD is Hospitalizing Provider. cp 13:58 No provider procedures requiring assistance completed. Patient admitted, IV remains in jd3 place. Administered Medications: 09:42 Drug: Ativan 1 mg Route: IVP; Site: right forearm; jd3 10:40 Follow up: Response: No adverse reaction jd3 10:19 Drug: Banana Bag - (NS 0.9% 1000 ml, foLIC Acid 1 mg, Thiamine 100 mg, Multivitamin 1 jd3 amp) Route: IV; Rate: 500 ml/hr; Site: right forearm; 11:20 Follow up: Response: No adverse reaction; IV Status: Completed infusion; IV Intake: jd3 1000ml 12:28 Drug: NS 0.9% 1000 ml Route: IV; Rate: 125 ml/hr; Site: right forearm; jd3 19:02 Follow up: Response: No adverse reaction; IV Status: Infusion continued upon admission jd3 12:29 Drug: Ativan 1 mg Route: IVP; Site: right forearm; jd3 13:20 Follow up: Response: No adverse reaction jd3 Intake: 11:20 IV: 1000ml; Total: 1000ml. jd3 Outcome: 11:17 Decision to Hospitalize by Provider. cp 13:58 Admitted to ER Hold. Please see [facility] for further documentation. jd3 13:58 Condition: stable 13:58 Instructed on the need for admit, Demonstrated understanding of instructions. 04/12 11:42 Patient left the ED. ph Signatures: Jonna Wilson RN RN ph Farhan Quintana PA PA cp Davies, Jonathon RN RN jd3
--- NOTE | 2020-04-10 12:08 | P.HP ---
Certification for Inpatient Patient admitted to: Inpatient Practitioner: I am a practitioner with admitting privileges, knowledge of patient current condition, hospital course, and medical plan of care. Services: Services provided to patient in accordance with Admission requirements found in Title 42 Section 412.3 of the Code of Federal Regulations Patient History Date of Service: 04/10/20 Reason for admission: Alcohol Withdrawal, possible seizure History of Present Illness: 50yo M, PMH: alchol abuse prior withdrawal, HTN, brought in to ED due to tremulousness and possible fall/seizure. Pt states he woke up on floor of his room and unsure how he got there. He woke up with significant shaking, unable to easily get up. He was eventually able to get to his phone but had great difficulty dialing to tremor as well. He reports h/o alcohol withdrawal. He quit drinking ~4 days ago. Drank ~1 pint of whiskey/day for last 3 months. Plans on quitting now. Has also had nausea / dry heaving, and diarrhea for past 2-3 days - states this is typical when he quits drinking alcohol. Reports decreased urine output as well. Otherwise denies any recent illness, no fever, no chest pain, no SOB, no abdominal pain. Denies hitting head when he fell, no MSK pain at this time. He was given ativan and started on banana bag in ED. CT brain negative. Labs notable for mild anemia and hypokalemia. Allergies No Known Allergies Allergy (Unverified 04/10/20 09:32) - Past Medical/Surgical History -: HTN Past Surgical History: Patient denies surgical history - Family History Family History: Reviewed- Non-Contributory - Social History Smoking Status: Current every day smoker Place of Residence: Home Physical Examination - Studies Laboratory Data (last 24 hrs) 04/10/20 09:26: PT 11.9, INR 1.01, APTT 26.9 04/10/20 09:26: WBC 5.80, Hgb 11.6 L, Hct 34.9 L, Plt Count 94 L 04/10/20 09:26: Sodium 133 L, Potassium 2.5 L*, BUN 4 L, Creatinine 1.10, Glucose 158 H, Total Bilirubin 0.5, AST 34, ALT 19, Alkaline Phosphatase 96 Assessment and Plan - Advance Directives Does patient have a Living Will: No Does patient have a Durable POA for Healthcare: No Physician Review Additional Text: Physical Exam Gen: NAD, AAOx3, tremoulous HEENT: normal conjunctiva, sclera anicteric CV: RRR, no murmur Pulm: CTAB, no wheeze/rales Abd: soft, NTND Ext: no rashes, no edema Neuro: str 5/5 throughout, CN: 2-12 grossly intact, mild tremor, +asterixis Problem List Alcohol Withdrawal, with ?seizure Alcohol Abuse hypokalemia HTN -admit to ICU for close monitoring and alcohol withdrawal assessments -unclear if true seizure, unwitnessed, woke up shaking and able to move, no loss of bowel/bladder function -scheduled ativan for now, and PRN for higher scores -bed rest / seizure precautions -banana bag -CLD, advance as tolerated, bedside swallow eval, aspiration precautions -replace potassium -decreased PO intake x 3 days, with some nausea/vomiting and diarrhea that likely lead to hypokalemia VTE: lovenox code: Full Dispo: anticipate dc home in ~48hrs Time Spent Managing Pts Care (In Minutes): 60
[2020-04-10] MEDS ORDERED: NA CHLORIDE 0.9% 1,000 ML ONE (12:34)
[2020-04-10 13:58] LABS: Urine Blood NEGATIVE (NEG); Urine Glucose NEGATIVE (NEG); Urine Protein NEGATIVE (NEG); Urine Specific Gravity 1.015 (1.005-1.030)
[2020-04-10] MEDS ORDERED: FLUMAZENIL 0.1 MG/ML (5 mL VIAL) IV PRN (14:14)
[2020-04-10] MEDS ORDERED: ONDANSETRON 4 MG/2 ML VIAL IV PRN (14:14)
[2020-04-10 14:23] LABS: Barbiturates NEGATIVE (NEGATIVE); Benzodiazepines NEGATIVE (NEGATIVE); Cocaine NEGATIVE (NEGATIVE); METHAMPHETAM NEGATIVE (NEGATIVE); Methadone NEGATIVE (NEGATIVE); Opiates NEGATIVE (NEGATIVE); Phencyclidine NEGATIVE (NEGATIVE); THC Cannibis NEGATIVE (NEGATIVE)
[2020-04-10 15:45] VITALS: BMI 25.0
[2020-04-10] MEDS: LORazepam 2 MG/ML VIAL IV PRN ×2 (17:12→22:18)
[2020-04-10] MEDS: KCL 20 MEQ/100 mL IVPB 20 MEQ/100 ML BAG IV SCH ×2 (20:00→22:00)
[2020-04-10] MEDS ORDERED: KCL 20 MEQ/100 mL IVPB 20 MEQ/100 ML BAG IV ONE (22:31)
[2020-04-11] MEDS: KCL 20 MEQ/100 mL IVPB 20 MEQ/100 ML BAG IV SCH
[2020-04-11] MEDS: LORazepam 2 MG/ML VIAL IV PRN ×4 (04:00→22:46)
[2020-04-11 06:56] LABS: Absolute Lymphocytes (CBC) 1.2 K/uL (0.7-4.9); Basophils % 0.5 % (0-1.3); Hematocrit 30.2 % (39.6-49.0); MPV 9.9 fL (7.6-11.3); RBC Red Blood Cell Count 3.04 M/uL (4.33-5.43)
[2020-04-11 07:52] LABS: ALT/SGPT 15 U/L (12-78); AST/SGOT 27 U/L (15-37); Albumin 2.1 g/dL (3.4-5.0); Alkaline Phosphatase 86 U/L (45-117); BUN Blood Urea Nitrogen 2 mg/dL (7-18); Bicarbonate 30 mmol/L (21-32); Bilirubin Total 0.6 mg/dL (0.2-1.0); Glucose Level 73 mg/dL (74-106); Sodium Level 141 mmol/L (136-145)
[2020-04-11 07:58] LABS: Potassium 2.8 mmol/L (3.5-5.1)
[2020-04-11] MEDS ORDERED: CALCIUM GLUC 10% INJ 4.65 MEQ in NA CHLORIDE 0.9% 100 ML IV ONE (08:13)
[2020-04-11] MEDS: THIAMINE HCL 100 MG TABLET PO SCH (09:00)
[2020-04-11] MEDS ORDERED: ENOXAPARIN 40 MG/0.4 ML SQ SCH (09:00)
[2020-04-11] MEDS ORDERED: FOLIC ACID 1 MG, MULTIVITAMINS INJ 10 ML, THIAMINE HCL 100 MG in NA CHLORIDE 0.9% 1,000 ML IV SCH (09:00)
[2020-04-11] MEDS: CALCIUM CARBONATE 500 MG TAB PO SCH ×2 (09:00→20:17)
[2020-04-11] MEDS: FOLIC ACID 1 MG TABLET PO SCH (09:00)
[2020-04-11] MEDS ORDERED: THIAMINE HCL 100 MG TABLET ONE (09:06)
[2020-04-11] MEDS ORDERED: FOLIC ACID 1 MG TABLET ONE (09:06)
[2020-04-11] MEDS: FOLIC ACID 1 MG, MULTIVITAMINS INJ 10 ML, THIAMINE HCL 100 MG in NA CHLORIDE 0.9% 1,000 ML IV SCH (09:19)
[2020-04-11] MEDS ORDERED: Magnesium Sulfate 2gm IVPB 2 G/50 ML BAG IV ONE ×4 (09:27→22:58)
[2020-04-11] MEDS ORDERED: LORazepam 2 MG/ML VIAL ONE ×2 (09:46→23:04)
--- NOTE | 2020-04-11 12:20 | EKG ---
Test Date: 2020-04-10 Test Time: 10:07:29 Betting Agency Manager: LILLY MEASUREMENT RESULTS: Intervals: Rate: 105 PA: 138 QRSD: 78 QT: 386 QTc: 510 Ranger: P: 51 PA: 138 QRS: 37 T: 48 INTERPRETIVE STATEMENTS: Sinus tachycardia Possible Left atrial enlargement Nonspecific T wave abnormality Abnormal ECG Compared to ECG 01/24/2018 14:43:26 T-wave abnormality now present Sinus rhythm no longer present Electronically Signed On 04-11-20 12:15:39 FIXTURE REPAIRER FABRICATOR by Landon Cunningham
--- NOTE | 2020-04-11 12:26 | P.PN ---
Subjective Date of Service: 04/11/20 Chief Complaint: Alcohol Withdrawal, possible seizure Subjective: Improving (Denies hallucinations, feeling a little bit better, tolerating liquid diet, still with a little bit of tremulousness, unsteady gait. Required 2 p.r.n. doses of Ativan overnight. some confusion overnight, urinated on floor. no diarrhea) Review of Systems 10-point ROS is otherwise unremarkable Physical Examination - Vital Signs Temperature: 98.3 F Blood Pressure: 103/89 Pulse: 90 Respirations: 18 Pulse Ox (%): 98 Assessment & Plan Physician Review Additional Text: Physical Exam Gen: NAD, AAOx3 HEENT: normal conjunctiva, sclera anicteric CV: RRR, no murmur Pulm: CTAB, no wheeze/rales Abd: soft, NTND Ext: no rashes, no edema Neuro: str 5/5 throughout, CN: 2-12 grossly intact, +mild asterixis Problem List Alcohol Withdrawal, with ?seizure Alcohol Abuse hypokalemia HTN -continue monitoring in ICU for now, improving. with significant electrolyte abnormalities, replace potassium, magnesium, calcium -mild hypocalcemia after correcting for low albumin, replace -unclear if true seizure, unwitnessed, woke up shaking and able to move, no loss of bowel/bladder function -improving, continue p.r.n. Ativan -bed rest / seizure precautions -banana bag -advance diet -decreased PO intake x 3 days, with some nausea/vomiting and diarrhea that likely lead to hypokalemia/hypomagnesemia -possible downgrade from ICU today -recheck electrolytes early afternoon today VTE: lovenox code: Full Dispo: anticipate dc home in ~24-48hrs Time Spent Managing Pts Care (In Minutes): 35
[2020-04-11 14:24] LABS: BUN Blood Urea Nitrogen 2 mg/dL (7-18); Bicarbonate 32 mmol/L (21-32); Glucose Level 74 mg/dL (74-106); Magnesium 1.6 mg/dL (1.8-2.4); Sodium Level 140 mmol/L (136-145)
[2020-04-11 14:25] LABS: Potassium 2.8 mmol/L (3.5-5.1)
[2020-04-11] MEDS: MAGNESIUM SULFATE 1 gm IVPB 1 GM/100 ML BAG IV ONE ×2 (14:47→15:00)
[2020-04-11] MEDS: POTASSIUM CL SA 10 MEQ TAB PO ONE ×2 (14:48→15:00)
[2020-04-11] MEDS: KCL 10 MEQ/100 ML IVPB 10 MEQ/100 ML BAG IV SCH ×3 (15:00→16:46)
[2020-04-11] MEDS ORDERED: POTASSIUM CL SA 10 MEQ TAB PO ONE ×3 (15:16→22:58)
[2020-04-11] MEDS ORDERED: KCL 20 MEQ/100 mL IVPB 20 MEQ/100 ML BAG IV ONE ×2 (15:17→16:58)
[2020-04-11] MEDS ORDERED: MAGNESIUM SULFATE 1 gm IVPB 1 GM/100 ML BAG IV ONE (15:17)
[2020-04-11] MEDS: VITAMIN D 5,000 UNIT CAP PO SCH (17:41)
[2020-04-11] MEDS: chlordiazePOXIDE HCl 25 MG CAP PO PRN (20:17)
[2020-04-11] MEDS ORDERED: chlordiazePOXIDE HCl 25 MG CAP ONE (20:27)
[2020-04-11 20:34] LABS: Urine Appearance CLEAR; Urine Bilirubin NEGATIVE (NEG); Urine Blood NEGATIVE (NEG); Urine Color YELLOW; Urine Glucose NEGATIVE (NEG); Urine Protein NEGATIVE (NEG); Urine Specific Gravity <=1.005 (1.005-1.030); Urine Urobilinogen 0.2 mg/dL (0.2-1.0); Urine pH 6.5 (5.0-7.0)
[2020-04-11 20:35] LABS: Urine Microscopic Reflex NO UMIC
[2020-04-11 20:48] LABS: BUN Blood Urea Nitrogen 3 mg/dL (7-18); Bicarbonate 30 mmol/L (21-32); Glucose Level 100 mg/dL (74-106); Magnesium 1.5 mg/dL (1.8-2.4); Potassium 3.4 mmol/L (3.5-5.1); Sodium Level 141 mmol/L (136-145)
[2020-04-12] MEDS: chlordiazePOXIDE HCl 25 MG CAP PO PRN ×2 (02:07→11:05)
[2020-04-12] MEDS: LORazepam 2 MG/ML VIAL IV PRN ×3 (02:07→13:21)
[2020-04-12] MEDS ORDERED: LORazepam 2 MG/ML VIAL ONE ×3 (02:20→10:16)
[2020-04-12] MEDS ORDERED: chlordiazePOXIDE HCl 25 MG CAP ONE ×2 (02:20→10:16)
[2020-04-12 05:25] LABS: Absolute Lymphocytes (CBC) 1.2 K/uL (0.7-4.9); Basophils % 0.3 % (0-1.3); Hematocrit 27.5 % (39.6-49.0); Lymphocytes % 24.1 % (15.3-44.8); MPV 9.9 fL (7.6-11.3); RBC Red Blood Cell Count 2.78 M/uL (4.33-5.43)
[2020-04-12 05:27] VITALS: O2SAT 98
[2020-04-12 05:50] LABS: ALT/SGPT 14 U/L (12-78); Albumin 2.1 g/dL (3.4-5.0); Alkaline Phosphatase 77 U/L (45-117); BUN Blood Urea Nitrogen 3 mg/dL (7-18); Bicarbonate 29 mmol/L (21-32); Bilirubin Total 0.2 mg/dL (0.2-1.0); Glucose Level 107 mg/dL (74-106); Phosphorus 2.9 mg/dL (2.5-4.9); Protein, Total 5.1 g/dL (6.4-8.2); Sodium Level 141 mmol/L (136-145)
[2020-04-12 05:51] LABS: AST/SGOT 24 U/L (15-37); Magnesium 1.9 mg/dL (1.8-2.4); Potassium 3.7 mmol/L (3.5-5.1)
[2020-04-12] MEDS ORDERED: POTASSIUM CL SA 10 MEQ TAB PO ONE ×2 (06:27→06:52)
[2020-04-12] MEDS ORDERED: LOPERAMIDE HCL 2 MG CAPSULE PO PRN (06:44)
[2020-04-12] MEDS ORDERED: LOPERAMIDE HCL 2 MG CAPSULE ONE (07:16)
[2020-04-12] MEDS: CALCIUM CARBONATE 500 MG TAB PO SCH (09:00)
[2020-04-12] MEDS: FOLIC ACID 1 MG TABLET PO SCH (09:00)
[2020-04-12] MEDS: VITAMIN D 5,000 UNIT CAP PO SCH (09:00)
[2020-04-12] MEDS: THIAMINE HCL 100 MG TABLET PO SCH (09:00)
[2020-04-12] MEDS: FOLIC ACID 1 MG, MULTIVITAMINS INJ 10 ML, THIAMINE HCL 100 MG in NA CHLORIDE 0.9% 1,000 ML IV SCH (09:00)
[2020-04-12] MEDS ORDERED: FOLIC ACID 1 MG TABLET ONE (09:12)
[2020-04-12] MEDS ORDERED: LORazepam 2 MG/ML VIAL IV SCH (13:00)
[2020-04-12 13:46] VITALS: BP 125/80; TEMP 98.6
--- NOTE | 2020-04-12 15:20 | P.DS ---
Admission Date: 04/10/20 Discharge Date: 04/12/20 Disposition: ROUTINE DISCHARGE Discharge Condition: GOOD Reason for Admission: Alcohol Withdrawal, possible seizure Procedures: CT Head (04/10): no acute intracranial abnormality Problem List Alcohol Withdrawal, with ?seizure Alcohol Abuse hypokalemia HTN Brief History of Present Illness: 50yo M, PMH: alchol abuse prior withdrawal, HTN, brought in to ED due to tremulousness and possible fall/seizure. Pt states he woke up on floor of his room and unsure how he got there. He woke up with significant shaking, unable to easily get up. He was eventually able to get to his phone but had great difficulty dialing to tremor as well. He reports h/o alcohol withdrawal. He quit drinking ~4 days ago. Drank ~1 pint of whiskey/day for last 3 months. Plans on quitting now. Has also had nausea / dry heaving, and diarrhea for past 2-3 days - states this is typical when he quits drinking alcohol. Reports decreased urine output as well. Otherwise denies any recent illness, no fever, no chest pain, no SOB, no abdominal pain. Denies hitting head when he fell, no MSK pain at this time. He was given ativan and started on banana bag in ED. CT brain negative. Labs notable for mild anemia and hypokalemia. Hospital Course: Patient was admitted and initially treated for alcohol withdrawal with IV ativa n, thiamine, folic acid. He had slow improvement, was transitioned to PO librium and continued to improve. On day of discharge he was tolerating a regular diet, feeling much better, but was continuing with very mild tremor. He was discharged with a few doses of Librium to take PRN while he fully recovered. Patient plans on going [place] [facility] [facility] again, where he had previously gone to stop drinking a lcohol. He was advised to f/u with PCP in the next week. PDMP reviewed, no red flags. Vital Signs/Physical Exam: Temp Pulse Resp BP Pulse Ox 98.6 F 84 18 125/80 99 04/12/20 12:00 04/12/20 12:00 04/12/20 12:00 04/12/20 12:00 04/12/20 12:00 General: Alert, In no apparent distress Neck: Supple, JVD not distended Respiratory: Clear to auscultation bilaterally, Normal air movement Cardiovascular: Regular rate/rhythm, Normal S1 S2 Gastrointestinal: Normal bowel sounds, Soft and benign Musculoskeletal: No clubbing Integumentary: No rashes Neurological: Normal speech, Normal affect Laboratory Data at Discharge: WBC 5.10 K/uL (4.3-10.9) 04/12/20 04:45 Hgb 9.4 g/dL (13.6-17.9) L 04/12/20 04:45 Hct 27.5 % (39.6-49.0) L 04/12/20 04:45 Plt Count 75 K/uL (152-406) L 04/12/20 04:45 PT 11.9 SECONDS (9.5-12.5) 04/10/20 09:26 INR 1.01 04/10/20 09:26 APTT 26.9 SECONDS (24.3-36.9) 04/10/20 09:26 Sodium 141 mmol/L (136-145) 04/12/20 04:45 Potassium 3.7 mmol/L (3.5-5.1) 04/12/20 04:45 BUN 3 mg/dL (7-18) L 04/12/20 04:45 Creatinine 0.74 mg/dL (0.55-1.3) 04/12/20 04:45 Glucose 107 mg/dL (74-106) H 04/12/20 04:45 Phosphorus 2.9 mg/dL (2.5-4.9) 04/12/20 04:45 Magnesium 1.9 mg/dL (1.8-2.4) 04/12/20 04:45 Total Bilirubin 0.2 mg/dL (0.2-1.0) 04/12/20 04:45 AST 24 U/L (15-37) 04/12/20 04:45 ALT 14 U/L (12-78) 04/12/20 04:45 Alkaline Phosphatase 77 U/L (45-117) 04/12/20 04:45 Home Medications: Cholecalciferol (Vitamin D3) [Vitamin D 5,000 IU Cap*] 5,000 unit PO DAILY 30 Days #30 cap 04/12/20 Folic Acid 1 mg PO DAILY 30 Days #30 tablet 04/12/20 Thiamine HCl [Vitamin B-1*] 100 mg PO DAILY 30 Days #30 tablet 04/12/20 chlordiazePOXIDE HCl [Librium*] 25 mg PO Q12H PRN 3 Days #6 cap 04/12/20 New Medications: Folic Acid 1 mg PO DAILY 30 Days #30 tablet chlordiazePOXIDE HCl [Librium*] 25 mg PO Q12H PRN 3 Days #6 cap PRN Reason: Agitation Thiamine HCl [Vitamin B-1*] 100 mg PO DAILY 30 Days #30 tablet Cholecalciferol (Vitamin D3) [Vitamin D 5,000 IU Cap*] 5,000 unit PO DAILY 30 Days #30 cap Physician Discharge Instructions: You were treated for alcohol withdrawal. You had low potassium, magnesium, calcium, and vitamin D. These were replaced. You should continue with a daily vitamin as well as folic acid, thiamine, and vitamin D as prescribed. You are di scharged home with Librium - take 1 pill as needed for tremors/agitation every 12 hours. Please follow up with your PCP in the next week. Do not take Librium and drink alcohol at the same time, this will increase your risk of not breathing / . Diet: Regular Activity: Ad tennille Followup: NONE,NONE [Primary Care Provider] - Time spent managing pt's care (in minutes): 40
== END 2020-04-12 16:19 | disposition home or self-care (01) | DRG 897 ==
LOC: ER 09:01 → ERHOLD 12:00 → 2ND 04-12 11:30
PROVIDERS: ADMIT Hospitalist; ATTEND Hospitalist
DX: F10.139 Alcohol abuse with withdrawal, unspecified (principal); F17.210 Nicotine dependence, cigarettes, uncomplicated; I10 Essential (primary) hypertension; D64.9 Anemia, unspecified; E87.6 Hypokalemia; E83.51 Hypocalcemia; E83.42 Hypomagnesemia; R56.9 Unspecified convulsions; Z79.899 Other long term (current) drug therapy; Z20.822 Contact with and (suspected) exposure to COVID-19
CPT/HCPCS: 36415; 70450; 80048; 80053; 80076; 80307; 80320; 80329; 81003; 82306; 83735; 83970; 84100; 85025; 85610; 85730; 93005; 94760; 96361; 96365; 96375; 99285; J0610; J3411; J3475; J3480; J7030; U0003